=== PATIENT | female | born 1960 | race Caucasian/White ===

== ENCOUNTER 2019-03-13 10:59 | Outpatient (CLI) | payer MEDICARE ==
[2019-03-13] VITALS (7 sets, daily range): BP systolic 107–114; BP diastolic 58–62
[~2019-03-13] VITALS: Ht 165.1 cm; Wt 54.5 kg
[~2019-03-13 10:59] MED LIST: ALPR0.252 PO; CLIN150C8 PO; DEXL60CA3 PO; ESTR1TAB23 PO; GABA-530 PO; LACT1CAP65 PO; OXYC-150 PO; THY15T PO; TOFA5TAB PO
[2019-03-13] MEDS ORDERED: aminophylline 250mg/10ml inj. IV PRN (12:30)
[2019-03-13] MEDS ORDERED: regadenoson 0.4mg/5ml syringe IV ONE (12:30)
[2019-03-13] MEDS ORDERED: nitroGLYCERIN 0.4mg SUBLingual tab SL PRN (12:30)
== END 2019-03-13 23:59 | disposition home or self-care (01) ==
LOC: RAD 10:59
PROVIDERS: ATTEND Internal Medicine Cardiovascular Disease
DX: Z01.818 Encounter for other preprocedural examination (principal); R94.31 Abnormal electrocardiogram [ECG] [EKG]; R07.9 Chest pain, unspecified
CPT/HCPCS: 78452; 93017; A9500; J0280; J2785